=== PATIENT | female | born 1995 | race Caucasian/White ===

== ENCOUNTER 2018-03-31 17:56 | Inpatient (IN) ==
[2018-03-31] MEDS ORDERED: Cefepime HCl 2,000 MG in 0.9 % Sodium Chloride Mini Bag 100 ML IVPB ONE (18:00)
[2018-03-31] MEDS ORDERED: cefTRIAXone 1,000 MG in Water for inj. (sterile) 20 ML 10 ML IVP ONE (18:01)
[2018-03-31] MEDS ORDERED: 0.9 % Sodium Chloride 1,000 ML IVC ONE (18:01)
[2018-03-31] MEDS ORDERED: Acetaminophen 325 MG TABLET PO ONE (18:01)
[2018-03-31] MEDS ORDERED: Ketorolac 15 MG/ML VIAL IVP ONE (18:03)
[2018-03-31] MEDS ORDERED: Gadolinium Contrast Agent (WT Based) IV PRN (18:07)
[2018-03-31 18:32] LABS: Basophils # 0.1 K/mcL (0.0-0.2); Basophils % 0.3 %; Hematocrit 37.6 % (35.3-44.9); Immature Granulocytes % 0.6 % (0-4); Lymphocytes % 5.2 %; Mean Corpuscular HGB Conc 34.6 g/dL (31.6-35.5); Mean Corpuscular Hemoglobin 28.7 pg (28.0-33.3); Mean Platelet Volume 10.9 fL (9.4-12.4); Monocytes # 2.7 K/mcL (0.0-1.3); Monocytes % 14.1 %; Neutrophils # 15.3 K/mcL (1.6-8.9); Platelet Count 200 K/mcL (140-400); Red Blood Count 4.53 M/mcL (3.82-4.97); Red Cell Distribution Width 12.7 % (11.5-14.5); Segmented Neutrophils % 79.8 %
[2018-03-31 18:37] LABS: Bilirubin,Urine Negative (Negative); Blood,Urine Trace (Negative); Clarity,Urine Cloudy (Clear); Color,Urine Yellow (Yellow); Glucose,Urine (UA) Normal (Normal); Ketones,Urine Negative (Negative); Leukocyte Esterase,Urine Moderate (Negative); Nitrite,Urine Positive (Negative); PH,Urine 7.5 pH Units (5.0-8.0); Protein,Urine 100 mg/dL (Neg-Trace); Specific Gravity,Urine 1.011 (1.010-1.025); Urobilinogen,Urine Normal (Normal)
[2018-03-31 18:38] LABS: Bacteria,Urine Many per hpf (None-Few); Hyaline Casts,Urine None Seen per lpf (None-Few); RBC,Urine 0-3 per hpf (0-3); Squamous Epithelial Cell,Urine Many per lpf (None-Few); WBC,Urine 15-30 per hpf (0-3)
--- NOTE | 2018-03-31 18:58 | Emergency Department Note ---
Disposition Clinical Impression: Back pain Qualifiers: Back pain location: low back pain Chronicity: acute Back pain laterality: midline Sciatica presence: without sciatica Qualified Code(s): M54.5 - Low back pain Fever Qualifiers: Fever type: unspecified Qualified Code(s): R50.9 - Fever, unspecified Disposition: Still a Patient Condition: Fair Time of Disposition: 19:00 General Adult HPI - General Chief complaint: ED Back Pain/Injury Stated complaint: Kidney Infection Time Seen by Provider: 03/31/18 17:58 Source: patient, EMS Mode of arrival: EMS Limitations: no limitations Nursing Notes Reviewed: Yes Vital Signs Reviewed: Yes - History of Present Illness HPI Narrative: 22-year-old female with significant past medical history of IV drug use the past week presenting to the emergency Department chief complaint of fever, myalgia and back pain. Patient states approximately one month ago she is diagnosed with the UTI given 2 weeks of Keflex. She completed that and felt better. For 2 weeks she was doing well. Then a few days ago she started having fever and back pain. She denies any shortness of breath, dizziness or passing out. She denies any vaginal discharge. She denies any concerns for STDs. She denies dysuria or frequency. Patient does state she has had multiple episodes of nonbloody nonbilious emesis today. Pain Scale: 9 - Related Data Allergies Allergy/AdvReac Type Severity Reaction Status Date / Time Amoxicillin Allergy Rash Verified 03/31/18 18:26 sulfamethoxazole Allergy Anaphylaxis Verified 03/31/18 18:26 [From Bactrim] trimethoprim [From Bactrim] Allergy Anaphylaxis Verified 03/31/18 18:26 All systems ED: reviewed and negative except as stated. Constitutional: Reports: fever, chills Eyes: Reports: as per HPI ENT ED: Reports: as per HPI Cardiovascular: Denies: chest pain, palpitations Respiratory: Denies: cough, wheezes, hemoptysis Gastrointestinal: Reports: nausea, vomiting. Denies: abdominal pain Genitourinary: Denies: urgency, dysuria Musculoskeletal: Reports: back pain Integumentary: Reports: as per HPI Neurological: Reports: as per HPI Psychiatric: Reports: as per HPI Endocrine: Reports: as per HPI Hematological/Lymphatic: Reports: as per HPI Allergic/Immunologic: Reports: as per HPI Past Medical History - Past Medical History Attestation: Yes The following information was validated with the patient. Medical history: Reports: GERD, hepatitis Psychiatric history: Reports: anxiety - Social History Smoking Status: Current every day smoker Alcohol use: Reports: none Drug use: Reports: cocaine, opiates, marijuana, methamphetamine, IV Drug Use Physical Exam - General Limitations: no limitations General appearance: alert - Head Head exam: atraumatic, normocephalic, normal inspection - Eye Eye exam: Present: normal appearance. Absent: scleral icterus, conjunctival injection - ENT ENT exam: normal exam, mucous membranes moist - Neck Neck exam: Present: normal inspection, full ROM. Absent: tenderness, meningismus - Chest Chest inspection: Present: normal inspection, symmetric chest wall rise. Absent : tenderness, rash - Respiratory Respiratory exam: Present: normal lung sounds bilaterally. Absent: respiratory distress, wheezes - Cardiovascular Cardiovascular exam: Present: normal rhythm, tachycardia, normal heart sounds - Abdominal Exam Abdominal exam: Present: soft, Non-Tender. Absent: distention, guarding, rebound - Extremities Exam Extremities exam: Present: normal inspection, full ROM - Back Exam Back exam: Present: tenderness (midline thoracic and lumbar back pain) - Neurological Exam Neurological exam: Present: alert, oriented X3 - Skin Skin exam: Present: warm Course Course Narrative: 22-year-old female presenting with chief complaint of back pain and fever. Patient is known IV drug user. Concern for epidural abscess versus pyelonephritis at this time. We will obtain a MRI of the thoracic and lumbar spine along with laboratory analysis for sepsis workup associated with UTI including UA, CBC and blood cultures. Patient is alert and oriented 3 in the room. Tachycardic in the 120s and febrile but otherwise stable. Disposition pending results. Patient agrees with this plan. - Reevaluation(s) Reevaluation #1: At this time I will sign the patient out to my fellow resident Dr. White. Time: 18:59 Vital Signs Temperature 102.6 F H 03/31/18 18:08 Pulse Rate 128 03/31/18 18:08 Respiratory Rate 18 03/31/18 18:08 Blood Pressure 133/87 03/31/18 18:08 O2 Sat by Pulse Oximetry 97 03/31/18 18:08 Temperature 102.6 F H 03/31/18 18:08 Pulse Rate 128 03/31/18 18:08 Respiratory Rate 18 03/31/18 18:08 Blood Pressure 133/87 03/31/18 18:08 O2 Sat by Pulse Oximetry 97 03/31/18 18:08 Oxygen Delivery Oxygen Delivery Room Air Medical Decision Making - Lab Data Result diagrams: 03/31/18 18:18 Lab Results 03/31/18 03/31/18 03/31/18 Range/Units 18:18 18:18 18:25 WBC 19.2 H (4.3-11.1) K/mcL RBC 4.53 (3.82-4.97) M/mcL Hgb 13.0 (11.5-15.4) g/dL Hct 37.6 (35.3-44.9) % MCV 83.0 (83.0-100.0) fL MCH 28.7 (28.0-33.3) pg MCHC 34.6 (31.6-35.5) g/dL RDW 12.7 (11.5-14.5) % Plt Count 200 (140-400) K/mcL MPV 10.9 (9.4-12.4) fL Immature Gran % 0.6 (0-4) % Seg Neutrophils % 79.8 % Lymphocytes % 5.2 % Monocytes % 14.1 % Eosinophils % 0.0 % Basophils % 0.3 % Neutrophils # 15.3 H (1.6-8.9) K/mcL Lymphocytes # 1.0 (0.6-4.6) K/mcL Monocytes # 2.7 H (0.0-1.3) K/mcL Eosinophils # 0.0 (0.0-0.6) K/mcL Basophils # 0.1 (0.0-0.2) K/mcL Lactic Acid 1.2 (0.5-2.2) mmol/L Urine Color Yellow (Yellow) Urine Clarity Cloudy A (Clear) Urine pH 7.5 (5.0-8.0) pH Units Ur Specific [place] 1.011 (1.010-1.025) Urine Protein 100 H (Neg-Trace) mg/dL Urine Glucose (UA) Normal (Normal) mg/dL Urine Ketones Negative (Negative) mg/dL Urine Blood Trace H (Negative) Urine Nitrite Positive A (Negative) Urine Bilirubin Negative (Negative) Urine Urobilinogen Normal (Normal) mg/dL Ur Leukocyte Esterase Moderate H (Negative) Urine Microscopic RBC 0-3 (0-3) per hpf Urine Microscopic WBC 15-30 H (0-3) per hpf Ur Squamous Epith Cells Many H (None-Few) per lpf Urine Bacteria Many H (None-Few) per hpf Hyaline Casts None Seen (None-Few) per lpf Ur Culture Indicated? NO. A (NO)
--- NOTE | 2018-03-31 19:10 | Emergency Department Note ---
Disposition Clinical Impression: Back pain Qualifiers: Back pain location: low back pain Chronicity: acute Back pain laterality: midline Sciatica presence: without sciatica Qualified Code(s): M54.5 - Low back pain Fever Qualifiers: Fever type: unspecified Qualified Code(s): R50.9 - Fever, unspecified Disposition: Still a Patient Condition: Fair Forms: ED Satisfaction Letter Time of Disposition: 19:10 General Adult HPI - General Chief complaint: ED Back Pain/Injury Stated complaint: Kidney Infection Time Seen by Provider: 03/31/18 17:58 Source: patient, EMS Mode of arrival: EMS Limitations: no limitations - History of Present Illness Pain Scale: 9 - Related Data Allergies Allergy/AdvReac Type Severity Reaction Status Date / Time Amoxicillin Allergy Rash Verified 03/31/18 18:26 sulfamethoxazole Allergy Anaphylaxis Verified 03/31/18 18:26 [From Bactrim] trimethoprim [From Bactrim] Allergy Anaphylaxis Verified 03/31/18 18:26 Constitutional: Reports: fever, chills Eyes: Reports: as per HPI ENT ED: Reports: as per HPI Cardiovascular: Denies: chest pain, palpitations Respiratory: Denies: cough, wheezes, hemoptysis Gastrointestinal: Reports: nausea, vomiting. Denies: abdominal pain Genitourinary: Denies: urgency, dysuria Musculoskeletal: Reports: back pain Integumentary: Reports: as per HPI Neurological: Reports: as per HPI Psychiatric: Reports: as per HPI Endocrine: Reports: as per HPI Hematological/Lymphatic: Reports: as per HPI Allergic/Immunologic: Reports: as per HPI Past Medical History - Past Medical History Medical history: Reports: GERD, hepatitis Psychiatric history: Reports: anxiety - Social History Smoking Status: Current every day smoker Alcohol use: Reports: none Drug use: Reports: cocaine, opiates, marijuana, methamphetamine, IV Drug Use Physical Exam - General Limitations: no limitations General appearance: alert Course Vital Signs Temperature 102.6 F H 03/31/18 18:08 Pulse Rate 128 03/31/18 18:08 Respiratory Rate 18 03/31/18 18:08 Blood Pressure 133/87 03/31/18 18:08 O2 Sat by Pulse Oximetry 97 03/31/18 18:08 Temperature 102.6 F H 03/31/18 18:08 Pulse Rate 128 03/31/18 18:08 Respiratory Rate 18 03/31/18 18:08 Blood Pressure 133/87 03/31/18 18:08 O2 Sat by Pulse Oximetry 97 03/31/18 18:08 Oxygen Delivery Oxygen Delivery Room Air Medical Decision Making - Lab Data Result diagrams: 03/31/18 18:18 Lab Results 03/31/18 03/31/18 03/31/18 Range/Units 18:18 18:18 18:25 WBC 19.2 H (4.3-11.1) K/mcL RBC 4.53 (3.82-4.97) M/mcL Hgb 13.0 (11.5-15.4) g/dL Hct 37.6 (35.3-44.9) % MCV 83.0 (83.0-100.0) fL MCH 28.7 (28.0-33.3) pg MCHC 34.6 (31.6-35.5) g/dL RDW 12.7 (11.5-14.5) % Plt Count 200 (140-400) K/mcL MPV 10.9 (9.4-12.4) fL Immature Gran % 0.6 (0-4) % Seg Neutrophils % 79.8 % Lymphocytes % 5.2 % Monocytes % 14.1 % Eosinophils % 0.0 % Basophils % 0.3 % Neutrophils # 15.3 H (1.6-8.9) K/mcL Lymphocytes # 1.0 (0.6-4.6) K/mcL Monocytes # 2.7 H (0.0-1.3) K/mcL Eosinophils # 0.0 (0.0-0.6) K/mcL Basophils # 0.1 (0.0-0.2) K/mcL Lactic Acid 1.2 (0.5-2.2) mmol/L Urine Color Yellow (Yellow) Urine Clarity Cloudy A (Clear) Urine pH 7.5 (5.0-8.0) pH Units Ur Specific [place] 1.011 (1.010-1.025) Urine Protein 100 H (Neg-Trace) mg/dL Urine Glucose (UA) Normal (Normal) mg/dL Urine Ketones Negative (Negative) mg/dL Urine Blood Trace H (Negative) Urine Nitrite Positive A (Negative) Urine Bilirubin Negative (Negative) Urine Urobilinogen Normal (Normal) mg/dL Ur Leukocyte Esterase Moderate H (Negative) Urine Microscopic RBC 0-3 (0-3) per hpf Urine Microscopic WBC 15-30 H (0-3) per hpf Ur Squamous Epith Cells Many H (None-Few) per lpf Urine Bacteria Many H (None-Few) per hpf Hyaline Casts None Seen (None-Few) per lpf Ur Culture Indicated? NO. A (NO) Attestation Statement - Attestation Attestation: I separately interviewed and examined the patient, discussed her evaluation with resident, and agree with the resident's plan. Patient was signed out to Dr. English at 7 PM.
[2018-03-31] MEDS ORDERED: Isovue-370 500 ML INFUS..BTL IV ONE (19:12)
[2018-03-31 19:20] LABS: Alanine Aminotransferase 11 Units/L (7-52); Albumin 3.8 g/dL (3.5-5.7); Albumin/Globulin Ratio 1.2 (1.1-2.2); Alkaline Phosphatase 70 Units/L (34-104); Aspartate Amino Transferase 13 Units/L (13-39); BUN/Creatinine Ratio 6 (6-26); Bilirubin,Direct 0.1 mg/dL (0.0-0.2); Bilirubin,Indirect 0.2 mg/dL (0.0-1.2); Bilirubin,Total 0.3 mg/dL (0.3-1.0); Blood Urea Nitrogen 4 mg/dL (6-20); Calcium 8.9 mg/dL (8.6-10.3); Carbon Dioxide 19 mEq/L (23-29); Chloride 101 mEq/L (98-107); Globulin 3.2 g/dL (2.4-3.5); Glucose 122 mg/dL (70-105); Osmolality,Calculated 268 (280-300); Potassium 2.8 mEq/L (3.5-5.1); Sodium 130 mEq/L (136-145); eGFR For Non-African Americans > 60 (> 60)
--- NOTE | 2018-03-31 21:48 | Emergency Department Note ---
Disposition Clinical Impression: Pyelonephritis Fever Qualifiers: Fever type: unspecified Qualified Code(s): R50.9 - Fever, unspecified Back pain Qualifiers: Back pain location: low back pain Chronicity: acute Back pain laterality: midline Sciatica presence: without sciatica Qualified Code(s): M54.5 - Low back pain Sepsis Qualifiers: Sepsis type: sepsis due to unspecified organism Qualified Code(s): A41.9 - Sepsis, unspecified organism Disposition: Admitted As Inpatient Condition: Good Referrals: Asad Walker DO [Primary Care Provider] - Forms: ED Satisfaction Letter Time of Disposition: 22:39 General Adult HPI - General Chief complaint: ED Back Pain/Injury Stated complaint: Kidney Infection Time Seen by Provider: 03/31/18 17:58 Source: patient, EMS Mode of arrival: EMS Limitations: no limitations - History of Present Illness Pain Scale: 9 - Related Data Home Medications Medication Instructions Recorded Confirmed Acetaminophen [Arthritis Pain 650 mg PO BID 03/31/18 03/31/18 Relief] Buspirone HCl [Buspar] 10 mg PO BID 03/31/18 03/31/18 Citalopram [CeleXA] 20 mg PO DAILY 03/31/18 03/31/18 Mavyret 3 tab PO DAILY 03/31/18 03/31/18 Pantoprazole Sodium [Protonix] 40 mg PO BID 03/31/18 03/31/18 Allergies Allergy/AdvReac Type Severity Reaction Status Date / Time Amoxicillin Allergy Rash Verified 03/31/18 21:52 sulfamethoxazole Allergy Anaphylaxis Verified 03/31/18 21:52 [From Bactrim] trimethoprim [From Bactrim] Allergy Anaphylaxis Verified 03/31/18 21:52 Constitutional: Reports: fever, chills Eyes: Reports: as per HPI ENT ED: Reports: as per HPI Cardiovascular: Denies: chest pain, palpitations Respiratory: Denies: cough, wheezes, hemoptysis Gastrointestinal: Reports: nausea, vomiting. Denies: abdominal pain Genitourinary: Denies: urgency, dysuria Musculoskeletal: Reports: back pain Integumentary: Reports: as per HPI Neurological: Reports: as per HPI Psychiatric: Reports: as per HPI Endocrine: Reports: as per HPI Hematological/Lymphatic: Reports: as per HPI Allergic/Immunologic: Reports: as per HPI Past Medical History - Past Medical History Medical history: Reports: GERD, hepatitis Psychiatric history: Reports: anxiety - Social History Smoking Status: Current every day smoker Alcohol use: Reports: none Drug use: Reports: cocaine, opiates, marijuana, methamphetamine, IV Drug Use Physical Exam - General Limitations: no limitations General appearance: alert Course Course Narrative: Patient sign off day shift team pending imaging and lab results. Please see their documentation for details. In brief 22-year-old female history of IV drug use most recently used in January who presented with fever and tachycardia with right flank pain. Recent UTI 1 month ago treated with Keflex for 14 day course. I to dismissal to the patient. Discussed imaging, labs and current recommendations. Imaging negative for spinal issue. CT damage as well as pyelonephritis in the setting of UTI as well as leukocytosis. Lactate normal. Vitals have improved with intervention. Patient agrees with admission for further management. Vital Signs Temperature 102.6 F H 03/31/18 18:08 Pulse Rate 128 03/31/18 18:08 Respiratory Rate 18 03/31/18 18:08 Blood Pressure 133/87 03/31/18 18:08 O2 Sat by Pulse Oximetry 97 03/31/18 18:08 Temperature 98.3 F 03/31/18 21:13 Pulse Rate 93 03/31/18 21:13 Respiratory Rate 16 03/31/18 21:13 Blood Pressure 115/76 03/31/18 21:13 O2 Sat by Pulse Oximetry 97 03/31/18 21:13 Oxygen Delivery Oxygen Delivery Room Air Medical Decision Making - MDM Narrative Medical decision making narrative: 22-year-old female with pyelonephritis. History of IV drug use. Tachycardic and febrile here. Improved during ED stay. Patient is septic secondary to pyelonephritis with tachycardia, fever and leukocytosis. Patient given cefepime. MRI negative of the spine. CT scan shows pyelonephritis. Admitted to the hospitalist service. - Lab Data Lab results reviewed: Yes I reviewed the patient's lab results. Result diagrams: 03/31/18 18:18 03/31/18 18:18 Lab Results 03/31/18 03/31/18 03/31/18 Range/Units 18:18 18:18 18:18 WBC 19.2 H (4.3-11.1) K/mcL RBC 4.53 (3.82-4.97) M/mcL Hgb 13.0 (11.5-15.4) g/dL Hct 37.6 (35.3-44.9) % MCV 83.0 (83.0-100.0) fL MCH 28.7 (28.0-33.3) pg MCHC 34.6 (31.6-35.5) g/dL RDW 12.7 (11.5-14.5) % Plt Count 200 (140-400) K/mcL MPV 10.9 (9.4-12.4) fL Immature Gran % 0.6 (0-4) % Seg Neutrophils % 79.8 % Lymphocytes % 5.2 % Monocytes % 14.1 % Eosinophils % 0.0 % Basophils % 0.3 % Neutrophils # 15.3 H (1.6-8.9) K/mcL Lymphocytes # 1.0 (0.6-4.6) K/mcL Monocytes # 2.7 H (0.0-1.3) K/mcL Eosinophils # 0.0 (0.0-0.6) K/mcL Basophils # 0.1 (0.0-0.2) K/mcL Sodium 130 L (136-145) mEq/L Potassium 2.8 L (3.5-5.1) mEq/L Chloride 101 (98-107) mEq/L Carbon Dioxide 19 L (23-29) mEq/L BUN 4 L (6-20) mg/dL Creatinine 0.63 (0.60-1.20) mg/dL Est GFR ( Amer) > 60 (> 60) Est GFR (Non-Af Amer) > 60 (> 60) BUN/Creatinine Ratio 6 (6-26) Glucose 122 H (70-105) mg/dL Calculated Osmolality 268 L (280-300) Lactic Acid 1.2 (0.5-2.2) mmol/L Calcium 8.9 (8.6-10.3) mg/dL Total Bilirubin 0.3 (0.3-1.0) mg/dL Direct Bilirubin 0.1 (0.0-0.2) mg/dL Indirect Bilirubin 0.2 (0.0-1.2) mg/dL AST 13 (13-39) Units/L ALT 11 (7-52) Units/L Alkaline Phosphatase 70 (34-104) Units/L Serum Total Protein 7.0 (6.4-8.9) g/dL Albumin 3.8 (3.5-5.7) g/dL Globulin 3.2 (2.4-3.5) g/dL Albumin/Globulin Ratio 1.2 (1.1-2.2) Urine Color (Yellow) Urine Clarity (Clear) Urine pH (5.0-8.0) pH Units Ur Specific [place] (1.010-1.025) Urine Protein (Neg-Trace) mg/dL Urine Glucose (UA) (Normal) mg/dL Urine Ketones (Negative) mg/dL Urine Blood (Negative) Urine Nitrite (Negative) Urine Bilirubin (Negative) Urine Urobilinogen (Normal) mg/dL Ur Leukocyte Esterase (Negative) Urine Microscopic RBC (0-3) per hpf Urine Microscopic WBC (0-3) per hpf Ur Squamous Epith Cells (None-Few) per lpf Urine Bacteria (None-Few) per hpf Hyaline Casts (None-Few) per lpf Ur Culture Indicated? (NO) 03/31/18 Range/Units 18:25 WBC (4.3-11.1) K/mcL RBC (3.82-4.97) M/mcL Hgb (11.5-15.4) g/dL Hct (35.3-44.9) % MCV (83.0-100.0) fL MCH (28.0-33.3) pg MCHC (31.6-35.5) g/dL RDW (11.5-14.5) % Plt Count (140-400) K/mcL MPV (9.4-12.4) fL Immature Gran % (0-4) % Seg Neutrophils % % Lymphocytes % % Monocytes % % Eosinophils % % Basophils % % Neutrophils # (1.6-8.9) K/mcL Lymphocytes # (0.6-4.6) K/mcL Monocytes # (0.0-1.3) K/mcL Eosinophils # (0.0-0.6) K/mcL Basophils # (0.0-0.2) K/mcL Sodium (136-145) mEq/L Potassium (3.5-5.1) mEq/L Chloride (98-107) mEq/L Carbon Dioxide (23-29) mEq/L BUN (6-20) mg/dL Creatinine (0.60-1.20) mg/dL Est GFR ( Amer) (> 60) Est GFR (Non-Af Amer) (> 60) BUN/Creatinine Ratio (6-26) Glucose (70-105) mg/dL Calculated Osmolality (280-300) Lactic Acid (0.5-2.2) mmol/L Calcium (8.6-10.3) mg/dL Total Bilirubin (0.3-1.0) mg/dL Direct Bilirubin (0.0-0.2) mg/dL Indirect Bilirubin (0.0-1.2) mg/dL AST (13-39) Units/L ALT (7-52) Units/L Alkaline Phosphatase (34-104) Units/L Serum Total Protein (6.4-8.9) g/dL Albumin (3.5-5.7) g/dL Globulin (2.4-3.5) g/dL Albumin/Globulin Ratio (1.1-2.2) Urine Color Yellow (Yellow) Urine Clarity Cloudy A (Clear) Urine pH 7.5 (5.0-8.0) pH Units Ur Specific [place] 1.011 (1.010-1.025) Urine Protein 100 H (Neg-Trace) mg/dL Urine Glucose (UA) Normal (Normal) mg/dL Urine Ketones Negative (Negative) mg/dL Urine Blood Trace H (Negative) Urine Nitrite Positive A (Negative) Urine Bilirubin Negative (Negative) Urine Urobilinogen Normal (Normal) mg/dL Ur Leukocyte Esterase Moderate H (Negative) Urine Microscopic RBC 0-3 (0-3) per hpf Urine Microscopic WBC 15-30 H (0-3) per hpf Ur Squamous Epith Cells Many H (None-Few) per lpf Urine Bacteria Many H (None-Few) per hpf Hyaline Casts None Seen (None-Few) per lpf Ur Culture Indicated? NO. A (NO) - Radiology Data Radiology results reviewed: Yes I reviewed the patient's radiology results. Lumbar Spine MRI 03/31/18 18:07 IMPRESSION: No MRI evidence of osteodiscitis or epidural abscess in the thoracic or lumbar spine. D/ / Miles Gonzalez MD / Miles Gonzalez MD Interpreting Provider: Miles Gonzalez MD Thoracic Spine MRI 03/31/18 18:07 IMPRESSION: No MRI evidence of osteodiscitis or epidural abscess in the thoracic or lumbar spine. D/ / Miles Gonzalez MD / Miles Gonzalez MD Interpreting Provider: Miles Gonzalez MD Abdomen/Pelvis CT 03/31/18 19:12 IMPRESSION: 1. Findings consistent with acute right pyelonephritis. Follow-up after treatment to confirm resolution of findings in the right kidney. D/ / Ramiro Benítez MD / Ramiro Benítez MD Interpreting Provider: Ramiro Benítez MD Fausto - Fausto Situation: Demographics, MOA Background: Presenting Complaint, Relevant PMH, Meds, & Allergies Assessment: Vital Signs, Course and respsone to treatment, Exam Concerns, Patient/Family Expectation, Pertinant Lab Results Recommendation: Barrier(s) to disposition, Recommendation based on pending studies, treatments, or consults Fausto Report Given to: Dr. Benita Lambert Repor Time: 22:39
[2018-03-31] MEDS ORDERED: Naloxone 0.4 MG/ML INJ IVP PRN (22:54)
[2018-03-31] MEDS ORDERED: Acetaminophen 325 MG TABLET PO PRN (22:54)
[2018-03-31] MEDS ORDERED: traMADol 50 MG TABLET PO PRN (22:54)
--- NOTE | 2018-03-31 23:10 | Emergency Department Note ---
Disposition Clinical Impression: Pyelonephritis Fever Qualifiers: Fever type: unspecified Qualified Code(s): R50.9 - Fever, unspecified Back pain Qualifiers: Back pain location: low back pain Chronicity: acute Back pain laterality: midline Sciatica presence: without sciatica Qualified Code(s): M54.5 - Low back pain Sepsis Qualifiers: Sepsis type: sepsis due to unspecified organism Qualified Code(s): A41.9 - Sepsis, unspecified organism Disposition: Admitted As Inpatient Condition: Good Time of Disposition: 22:39 General Adult HPI - General Chief complaint: ED Back Pain/Injury Stated complaint: Kidney Infection Time Seen by Provider: 03/31/18 17:58 Source: patient, EMS Mode of arrival: EMS Limitations: no limitations Nursing Notes Reviewed: Yes Vital Signs Reviewed: Yes - History of Present Illness Pain Scale: 4 - Related Data Home Medications Medication Instructions Recorded Confirmed Acetaminophen [Arthritis Pain 650 mg PO BID 03/31/18 03/31/18 Relief] Buspirone HCl [Buspar] 10 mg PO BID 03/31/18 03/31/18 Citalopram [CeleXA] 20 mg PO DAILY 03/31/18 03/31/18 Mavyret 3 tab PO DAILY 03/31/18 03/31/18 Pantoprazole Sodium [Protonix] 40 mg PO BID 03/31/18 03/31/18 Allergies Allergy/AdvReac Type Severity Reaction Status Date / Time Amoxicillin Allergy Rash Verified 03/31/18 21:52 sulfamethoxazole Allergy Anaphylaxis Verified 03/31/18 21:52 [From Bactrim] trimethoprim [From Bactrim] Allergy Anaphylaxis Verified 03/31/18 21:52 Constitutional: Reports: fever, chills Eyes: Reports: as per HPI ENT ED: Reports: as per HPI Cardiovascular: Denies: chest pain, palpitations Respiratory: Denies: cough, wheezes, hemoptysis Gastrointestinal: Reports: nausea, vomiting. Denies: abdominal pain Genitourinary: Denies: urgency, dysuria Musculoskeletal: Reports: back pain Integumentary: Reports: as per HPI Neurological: Reports: as per HPI Psychiatric: Reports: as per HPI Endocrine: Reports: as per HPI Hematological/Lymphatic: Reports: as per HPI Allergic/Immunologic: Reports: as per HPI Past Medical History - Past Medical History Medical history: Reports: GERD, hepatitis Psychiatric history: Reports: anxiety - Social History Smoking Status: Current every day smoker Alcohol use: Reports: none Drug use: Reports: cocaine, opiates, marijuana, methamphetamine, IV Drug Use Physical Exam - General Limitations: no limitations General appearance: alert Course Vital Signs Temperature 102.6 F H 03/31/18 18:08 Pulse Rate 128 03/31/18 18:08 Respiratory Rate 18 03/31/18 18:08 Blood Pressure 133/87 03/31/18 18:08 O2 Sat by Pulse Oximetry 97 03/31/18 18:08 Temperature 98.3 F 03/31/18 21:13 Pulse Rate 93 03/31/18 21:13 Respiratory Rate 16 03/31/18 22:51 Blood Pressure 109/87 03/31/18 22:51 O2 Sat by Pulse Oximetry 97 03/31/18 21:13 Oxygen Delivery Oxygen Delivery Room Air Medical Decision Making - Medical Records Medical records reviewed: Yes I reviewed the patient's medical records. - Lab Data Lab results reviewed: Yes I reviewed the patient's lab results. Result diagrams: 03/31/18 18:18 03/31/18 18:18 Lab Results 03/31/18 03/31/18 03/31/18 Range/Units 18:18 18:18 18:18 WBC 19.2 H (4.3-11.1) K/mcL RBC 4.53 (3.82-4.97) M/mcL Hgb 13.0 (11.5-15.4) g/dL Hct 37.6 (35.3-44.9) % MCV 83.0 (83.0-100.0) fL MCH 28.7 (28.0-33.3) pg MCHC 34.6 (31.6-35.5) g/dL RDW 12.7 (11.5-14.5) % Plt Count 200 (140-400) K/mcL MPV 10.9 (9.4-12.4) fL Immature Gran % 0.6 (0-4) % Seg Neutrophils % 79.8 % Lymphocytes % 5.2 % Monocytes % 14.1 % Eosinophils % 0.0 % Basophils % 0.3 % Neutrophils # 15.3 H (1.6-8.9) K/mcL Lymphocytes # 1.0 (0.6-4.6) K/mcL Monocytes # 2.7 H (0.0-1.3) K/mcL Eosinophils # 0.0 (0.0-0.6) K/mcL Basophils # 0.1 (0.0-0.2) K/mcL Sodium 130 L (136-145) mEq/L Potassium 2.8 L (3.5-5.1) mEq/L Chloride 101 (98-107) mEq/L Carbon Dioxide 19 L (23-29) mEq/L BUN 4 L (6-20) mg/dL Creatinine 0.63 (0.60-1.20) mg/dL Est GFR ( Amer) > 60 (> 60) Est GFR (Non-Af Amer) > 60 (> 60) BUN/Creatinine Ratio 6 (6-26) Glucose 122 H (70-105) mg/dL Calculated Osmolality 268 L (280-300) Lactic Acid 1.2 (0.5-2.2) mmol/L Calcium 8.9 (8.6-10.3) mg/dL Total Bilirubin 0.3 (0.3-1.0) mg/dL Direct Bilirubin 0.1 (0.0-0.2) mg/dL Indirect Bilirubin 0.2 (0.0-1.2) mg/dL AST 13 (13-39) Units/L ALT 11 (7-52) Units/L Alkaline Phosphatase 70 (34-104) Units/L Serum Total Protein 7.0 (6.4-8.9) g/dL Albumin 3.8 (3.5-5.7) g/dL Globulin 3.2 (2.4-3.5) g/dL Albumin/Globulin Ratio 1.2 (1.1-2.2) Urine Color (Yellow) Urine Clarity (Clear) Urine pH (5.0-8.0) pH Units Ur Specific [place] (1.010-1.025) Urine Protein (Neg-Trace) mg/dL Urine Glucose (UA) (Normal) mg/dL Urine Ketones (Negative) mg/dL Urine Blood (Negative) Urine Nitrite (Negative) Urine Bilirubin (Negative) Urine Urobilinogen (Normal) mg/dL Ur Leukocyte Esterase (Negative) Urine Microscopic RBC (0-3) per hpf Urine Microscopic WBC (0-3) per hpf Ur Squamous Epith Cells (None-Few) per lpf Urine Bacteria (None-Few) per hpf Hyaline Casts (None-Few) per lpf Ur Culture Indicated? (NO) 03/31/18 Range/Units 18:25 WBC (4.3-11.1) K/mcL RBC (3.82-4.97) M/mcL Hgb (11.5-15.4) g/dL Hct (35.3-44.9) % MCV (83.0-100.0) fL MCH (28.0-33.3) pg MCHC (31.6-35.5) g/dL RDW (11.5-14.5) % Plt Count (140-400) K/mcL MPV (9.4-12.4) fL Immature Gran % (0-4) % Seg Neutrophils % % Lymphocytes % % Monocytes % % Eosinophils % % Basophils % % Neutrophils # (1.6-8.9) K/mcL Lymphocytes # (0.6-4.6) K/mcL Monocytes # (0.0-1.3) K/mcL Eosinophils # (0.0-0.6) K/mcL Basophils # (0.0-0.2) K/mcL Sodium (136-145) mEq/L Potassium (3.5-5.1) mEq/L Chloride (98-107) mEq/L Carbon Dioxide (23-29) mEq/L BUN (6-20) mg/dL Creatinine (0.60-1.20) mg/dL Est GFR ( Amer) (> 60) Est GFR (Non-Af Amer) (> 60) BUN/Creatinine Ratio (6-26) Glucose (70-105) mg/dL Calculated Osmolality (280-300) Lactic Acid (0.5-2.2) mmol/L Calcium (8.6-10.3) mg/dL Total Bilirubin (0.3-1.0) mg/dL Direct Bilirubin (0.0-0.2) mg/dL Indirect Bilirubin (0.0-1.2) mg/dL AST (13-39) Units/L ALT (7-52) Units/L Alkaline Phosphatase (34-104) Units/L Serum Total Protein (6.4-8.9) g/dL Albumin (3.5-5.7) g/dL Globulin (2.4-3.5) g/dL Albumin/Globulin Ratio (1.1-2.2) Urine Color Yellow (Yellow) Urine Clarity Cloudy A (Clear) Urine pH 7.5 (5.0-8.0) pH Units Ur Specific [place] 1.011 (1.010-1.025) Urine Protein 100 H (Neg-Trace) mg/dL Urine Glucose (UA) Normal (Normal) mg/dL Urine Ketones Negative (Negative) mg/dL Urine Blood Trace H (Negative) Urine Nitrite Positive A (Negative) Urine Bilirubin Negative (Negative) Urine Urobilinogen Normal (Normal) mg/dL Ur Leukocyte Esterase Moderate H (Negative) Urine Microscopic RBC 0-3 (0-3) per hpf Urine Microscopic WBC 15-30 H (0-3) per hpf Ur Squamous Epith Cells Many H (None-Few) per lpf Urine Bacteria Many H (None-Few) per hpf Hyaline Casts None Seen (None-Few) per lpf Ur Culture Indicated? NO. A (NO) - Radiology Data Radiology results reviewed: Yes I reviewed the patient's radiology results. Lumbar Spine MRI 03/31/18 18:07 IMPRESSION: No MRI evidence of osteodiscitis or epidural abscess in the thoracic or lumbar spine. D/ / Miles Gonzalez MD / Miles Gonzalez MD Interpreting Provider: Miles Gonzalez MD Thoracic Spine MRI 03/31/18 18:07 IMPRESSION: No MRI evidence of osteodiscitis or epidural abscess in the thoracic or lumbar spine. D/ / Miles Gonzalez MD / Miles Gonzalez MD Interpreting Provider: Miles Gonzalez MD Abdomen/Pelvis CT 03/31/18 19:12 IMPRESSION: 1. Findings consistent with acute right pyelonephritis. Follow-up after treatment to confirm resolution of findings in the right kidney. D/ / Ramiro Benítez MD / Ramiro Benítez MD Interpreting Provider: Ramiro Benítez MD Critical Care Time Critical Care Time: Yes Total Critical Care Time: 35 Attestation: Critical care performed: Time is exclusive of separately billable procedures. Time includes: direct patient care, patient reassessment, coordination of patient care, interpretation of data (laboratory data, radiology data, and respiratory data), review of patient's medical records, medical consultation and documentation of patient care. Procedures included in critical care time: Procedures excluded from critical care time: Attestation Statement - Attestation Attestation: I, Emiliano Teran MD, personally evaluated this patient and discussed their management with the resident physician. I reviewed the resident's note and agree with the documented findings, medical decision making, and plan of care. This patient was signed out at shift change from Dr. Vanessa Curry and Dr. Evans. Patient presented with fever and chills and nausea and vomiting and right flank pain. He also complained of some back pain. At shift change patient is awaiting labs and CT and MRI of the spine. On examination patient is a well-developed well-nourished well-appearing female in no acute distress. She is alert and oriented 3. There is no cyanosis or diaphoresis. Breath sounds are clear and equal bilaterally. Heart regular rate and rhythm. Abdomen soft and nontender with normal bowel sounds. Mild right CVA tenderness. Labs and imaging reviewed. Findings consistent with pyelonephritis. The hospitalist, Dr. Marc, was consulted and accepted admission of the patient.
--- NOTE | 2018-04-01 00:05 | Internal Med History&Physical ---
Date of Encounter: 04/01/18 Time of Encounter: 23:50 Internal Medicine - H&P: HPI Chief complaint: Back pain, right flank pain, fevers and chills History of present illness: Ms. Hightower is a 22 year old female with history of recurrent UTIs, hep C, IV drug abuseand past hopsitalization for pyelonephritis presenting with comlaints of flank pain since thursday night. Patient note she goes to her PCP every month for UTIs. On thursday night she began to have right sided flank pain, along with back pain. Symptoms were accompanied with nausea, fevers and chills. She also had vomiting yesterday morning. Also admits to dizzines and chills. In the ER, CT abdomen showed evidence of right sided pyelonephritis. She was given one dose ceftriaxone Past Med Surg Social Fam HX - Past Medical History Medical history: GERD, hepatitis Additional medical history: Previous IV drug use Psychiatric history: anxiety - Past Surgical History Surgical History: breast surgery Additional surgical history: [place] teeth. Lump removed from left breast. Tonsillectomy - Social History Smoking Status: Former smoker Smokeless Tobacco Status: No Alcohol use: none Drug use: cocaine, opiates, marijuana, methamphetamine, IV Drug Use, prescription drug abuse Internal Medicine - H&P: Meds Acetaminophen [Arthritis Pain Relief] 650 mg PO BID 03/31/18 [History] Buspirone HCl [Buspar] 10 mg PO BID 03/31/18 [History] Citalopram [CeleXA] 20 mg PO DAILY 03/31/18 [History] Mavyret 3 tab PO DAILY 03/31/18 [History] Pantoprazole Sodium [Protonix] 40 mg PO BID 03/31/18 [History] 3 Allergy/AdvReac Type Severity Reaction Status Date / Time Amoxicillin Allergy Rash Verified 03/31/18 21:52 sulfamethoxazole Allergy Anaphylaxis Verified 03/31/18 21:52 [From Bactrim] trimethoprim [From Bactrim] Allergy Anaphylaxis Verified 03/31/18 21:52 All Systems PM: A 10-system review of systems was performed and is negative for pertinent findings except as documented above in the HPI. - Constitutional Constitutional: chills, fever(s), malaise - EENT Eyes: no change in vision, no discharge, no pain, no photophobia Ears: no ear discharge, no ear pain, no tinnitus Nose, mouth and throat: no dysphagia, no nasal discharge, no neck pain, no sore throat - Cardiovascular Cardiovascular ROS IM: no chest pain, no diaphoresis, no dyspnea, no lightheadedness, no palpitations, no syncope - Respiratory Respiratory: no cough, no dyspnea, no wheezing, no excessive phlegm production - Gastrointestinal Gastrointestinal: abdominal pain, no diarrhea, no hematemesis, no hematochezia, no melena, no nausea, no vomiting - Genitourinary Genitourinary: flank pain, no change in urinary stream, no dysuria, no hematuria - Musculoskeletal Musculoskeletal ROS IM: no numbness, no tingling - Integumentary Integumentary IM: no rash, no unusual bruising - Neurological Neurological ROS: no confusion, no convulsions, no focal weakness, no numbness, no tingling, no tremor(s) - Hematologic/Lymphatic Hematologic/Lymphatic: no easy bruising - Constitutional Vitals: Temp Pulse Resp BP Pulse Ox 99.3 F 99 16 122/76 99 03/31/18 23:12 03/31/18 23:12 03/31/18 23:12 03/31/18 23:12 03/31/18 23:12 - Head Head exam: Present: atraumatic, normocephalic - Eye Eye exam: Present: PERRL, conjuntiva pink, sclera anicteric Pupils: Present: PERRL - Neck Neck exam general surgery: Present: supple, trachea midline. Absent: lymphadenopathy - Respiratory Respiratory exam: Present: CTAB. Absent: accessory muscle use, rales, rhonchi, wheezes - Cardiovascular Cardiovascular exam: Present: RRR, +S1, +S2. Absent: diastolic murmur, gallop, rubs, systolic murmur - GI/Abdominal GI/Abdominal exam: Present: normal bowel sounds, soft, no peritoneal signs. Absent: distended, tenderness - Extremities Exam Extremities exam: Present: warm, radial pulses palpable and symmetrical. Absent : calf tenderness, cyanotic, pedal edema - Back Exam Back exam: Present: CVA tenderness (R) - Neurological Exam Neurological exam: Present: CN II-XII intact, oriented X3, no focal deficits. Absent: pronater drift, facial droop, speech deficit - Skin Skin exam: Present: dry, intact Internal Med - H&P Results - Labs CBC & Chem 7: 03/31/18 18:18 08 18:18 - Assessment and plan (1) Sepsis Current Visit: Yes Status: Acute Assessment and plan: Sepsis 2/2 to pyelopnephritis. Pt had fever of 102 with WBC of 19. Blood cultures and urine cultures ordered. Started on levaquin. Follow up cultures Qualifiers: Sepsis type: sepsis due to unspecified organism Qualified Code(s): A41.9 - Sepsis, unspecified organism (2) Pyelonephritis Current Visit: Yes Status: Acute Assessment and plan: Acute pyelonephritis. Continue antibiotics (3) Hepatitis C Current Visit: Yes Status: Acute Assessment and plan: pT has been non compliant with her antivirals because she says she was in shelter and can't take her meds in shelter. Follow up with PCP. Plan to ocmplete 8 week course uninterrupted, ideally Qualifiers: Qualified Code(s): B19.20 - Unspecified viral hepatitis C without hepatic coma (4) DVT prophylaxis Current Visit: Yes Status: Acute Assessment and plan: SCDs - Time Spent With Patient Total time spent is greater than 50% in coordination of care (as documented) at patient's floor/unit and/or counseling patient:
[2018-04-01] MEDS: 0.9 % Sodium Chloride 1,000 ML IVC SCH ×2 (00:50→10:15)
[2018-04-01 03:07] LABS: Basophils % 0.2 %; Hematocrit 34.5 % (35.3-44.9); Hemoglobin 11.8 g/dL (11.5-15.4); Immature Granulocytes % 0.6 % (0-4); Lymphocytes # 1.1 K/mcL (0.6-4.6); Lymphocytes % 5.7 %; Mean Corpuscular HGB Conc 34.2 g/dL (31.6-35.5); Mean Corpuscular Hemoglobin 28.2 pg (28.0-33.3); Mean Corpuscular Volume 82.5 fL (83.0-100.0); Mean Platelet Volume 11.2 fL (9.4-12.4); Monocytes # 3.8 K/mcL (0.0-1.3); Monocytes % 20.1 %; Neutrophils # 13.9 K/mcL (1.6-8.9); Platelet Count 202 K/mcL (140-400); Red Blood Count 4.18 M/mcL (3.82-4.97); Red Cell Distribution Width 12.8 % (11.5-14.5); Segmented Neutrophils % 73.4 %
[2018-04-01 03:30] LABS: BUN/Creatinine Ratio 6 (6-26); Blood Urea Nitrogen 4 mg/dL (6-20); Calcium 8.8 mg/dL (8.6-10.3); Carbon Dioxide 19 mEq/L (23-29); Chloride 112 mEq/L (98-107); Glucose 126 mg/dL (70-105); Osmolality,Calculated 272 (280-300); Phosphorous 1.3 mg/dL (2.7-4.5); Sodium 132 mEq/L (136-145); eGFR For Non-African Americans > 60 (> 60)
[2018-04-01 03:36] LABS: Platelet Estimate Normal (Normal)
[2018-04-01] MEDS ORDERED: Cefepime HCl 2,000 MG in Water for inj. (sterile) 20 ML 20 ML IVP SCH (08:00)
[2018-04-01] MEDS ORDERED: MAVYRET PO SCH (09:00)
[2018-04-01] MEDS ORDERED: Levofloxacin 750 MG/150 ML 750 MG/150 ML BAG IVPB SCH (09:00)
--- NOTE | 2018-04-01 09:43 | Internal Med Progress Note ---
Hospitalist Progress Note - Encounter Date of Encounter: 04/01/18 Time of Encounter: 09:37 - Subjective Interval History: 22 year old female with history of recurrent UTIs, hep C, IV drug abuseand past hopsitalization for pyelonephritis presenting with comlaints of flank pain since 5 days before admission. As per patient she was recently treated for a UTI with Keflex for 14 days 2 months ago but her symptoms returned. Currently she denies any fever, chills, nausea, vomiting, diarrhea. She still has mild dysuria, as right-sided flank pain, that is crampy in nature and has made her difficult to sleep on her right side. She has received IV antibiotics without any adverse reactions. She reports that she is hungry and feels as though she is ready to eat since her nausea has resolved. - Exam Vitals: Temp Pulse Resp BP Pulse Ox 99.9 F H 106 18 119/78 98 04/01/18 07:44 04/01/18 07:44 04/01/18 07:44 04/01/18 07:44 04/01/18 07:44 Exam: General: Patient is alert, oriented, no acute distress, Head: atraumatic, normocephalic, Eye: normal appearance, PERRL, no scleral icterus, no conjunctival injection ENT: mucous membranes moist, normal external ear exam Neck: normal inspection, trachea midline, full ROM, no carotid bruits Chest: normal inspection, symmetric chest rise Respiratory: Good respiratory effort. Bilateral breath sounds are clear without wheezing, crackles, or rhonchi. Cardiovascular: Regular rate and rhythm. s1 and s2 No clicks, rubs, gallops, or murmors. Abdomen: Bowel sounds present normoactive x-4 quadrants. Abdomen is soft, nondistended. no Epigastric tenderness. No guarding or rebound. No organomegaly noted, right sided CVA tenderness musculoskeletal: Spontaneously moving all extremities. no edema, no calf tenderness Skin: warm, dry, intact. Neuro: Alert and oriented x4. Sensation light touch intact. Cranial nerves 2- 12 is intact. Not aphasic, gait is steady, rapid hand movements intact, finger- to-nose intact, Psych: Patient's affect is normal - Assessment and Plan (1) Pyelonephritis Current Visit: Yes Status: Acute Assessment and Plan: CT abdomen and pelvis was positive for right-sided pyelonephritis on March 31 Patient received ceftriaxone in the ED We will continue IV fluids Was started on IV Levaquin stop IV Levaquin- started her on vancomycin and cefepime (did not show any reactions to ceftriaxone received in the ED) Will follow blood cultures and urine cultures and de-escalate antibiotics Has history of IV drug abuse (2) Sepsis Current Visit: Yes Status: Acute Assessment and Plan: Sepsis 2/2 to pyelopnephritis. Pt had fever of 102 with WBC of 19. On admission White count is trending down Lactic acid negative 2 Currently afebrile Vitals are stable Well continue management as per above (3) Hepatitis C Current Visit: Yes Status: Acute Assessment and Plan: pT has been non compliant with her antivirals because she says [facility] and can't take her meds [facility]. Follow up with PCP. Plan to complete 8 week course uninterrupted, ideally (4) Hypophosphatemia Current Visit: Yes Status: Acute Assessment and Plan: We will replace (5) Hypokalemia Current Visit: Yes Status: Acute Assessment and Plan: replaced will follow BMP mag WNL (6) DVT prophylaxis Current Visit: Yes Status: Acute Assessment and Plan: heparin sc DVT Prophylaxis: Heparin subcutaneous - Time Spent with Patient Total time spent is greater than 50% in coordination of care (as documented) at patient's floor/unit and/or counseling patient: Plan of Care Discussed with: patient Internal Medicine: Result - Labs CBC & Chem 7: 04/01/18 02:53 04/01/18 02:53 Labs: Short CBC 04/01/18 Range/Units 02:53 WBC 18.9 H (4.3-11.1) K/mcL Hgb 11.8 (11.5-15.4) g/dL Hct 34.5 L (35.3-44.9) % Plt Count 202 (140-400) K/mcL Neutrophils # 13.9 H (1.6-8.9) K/mcL BMP 04/01/18 02:53 Sodium 132 L Potassium 3.0 L Chloride 112 H Carbon Dioxide 19 L BUN 4 L Creatinine 0.63 Glucose 126 H Calcium 8.8 - VTE Documentation of Mechanical Device: Intermittent pneumatic compression device Consult Discharge Plan - Plan Referrals: Asad Walker DO [Primary Care Provider] - (2) Sepsis Qualifiers: Sepsis type: sepsis due to unspecified organism Qualified Code(s): A41.9 - Sepsis, unspecified organism (3) Hepatitis C Qualifiers: Qualified Code(s): B19.20 - Unspecified viral hepatitis C without hepatic coma
[2018-04-01] MEDS ORDERED: *HR* OxyCODONE/APAP 5/325 TABLET PO PRN (09:50)
[2018-04-01 10:44] VITALS: BP 108/72
[2018-04-01] MEDS ORDERED: *HR* Heparin 5,000 UNIT/ML VIAL SQ SCH (14:00)
[2018-04-01] MEDS ORDERED: Aminoglycoside Consult 1 EACH MC ONE (14:15)
--- NOTE | 2018-04-02 18:55 | Discharge Summary ---
- NOTES TO OUTPATIENT PROVIDER Notes to Outpatient Provider: LEFT ama Date of Encounter: 04/02/18 Time of Encounter: 14:00 - Discharge Diagnosis (1) Pyelonephritis Priority: Primary Status: Acute (2) Sepsis Priority: Secondary Status: Acute Qualifiers: Sepsis type: sepsis due to unspecified organism Qualified Code(s): A41.9 - Sepsis, unspecified organism (3) Hepatitis C Priority: Secondary Status: Acute Qualifiers: Qualified Code(s): B19.20 - Unspecified viral hepatitis C without hepatic coma (4) Hypophosphatemia Priority: Secondary Status: Acute (5) Hypokalemia Priority: Secondary Status: Acute (6) DVT prophylaxis Priority: Secondary Status: Acute Hospital course: Ms. Hightower is a 22 year old female 22 year old female with history of recurrent UTIs, hep C, IV drug abuseand past hopsitalization for pyelonephritis presenting with comlaints of flank pain since 5 days before admission. As per patient she was recently treated for a UTI with Keflex for 14 days 2 months ago but her symptoms returned. Currently she denies any fever, chills, nausea, vomiting, diarrhea. She still has mild dysuria, as right-sided flank pain, that is crampy in nature and has made her difficult to sleep on her right side. She has received IV antibiotics without any adverse reactions. Patient wanted to sign AMA and go to home. Explained to the patient the importance of disease management in the hospital and risk of signing out AMA. pt understood complication of not being cooperative with treatment management that includes but not limited to even . Patient signed AMA. Witnessed by nurse. - Time Spent with Patient Total time spent providing and/or coordinating discharge services: - Discharge Medications Home Medications: Acetaminophen [Arthritis Pain Relief] 650 mg PO BID 03/31/18 [History] Buspirone HCl [Buspar] 10 mg PO BID PRN 03/31/18 [History] Citalopram [CeleXA] 20 mg PO DAILY 03/31/18 [History] Mavyret 3 tab PO DAILY 03/31/18 [History] Pantoprazole Sodium [Protonix] 40 mg PO BID 03/31/18 [History] Allergies/Adverse Reactions: 3 Allergy/AdvReac Type Severity Reaction Status Date / Time Amoxicillin Allergy Rash Verified 03/31/18 21:52 sulfamethoxazole Allergy Anaphylaxis Verified 03/31/18 21:52 [From Bactrim] trimethoprim [From Bactrim] Allergy Anaphylaxis Verified 03/31/18 21:52 Date of admission: 03/31/18 22:54 Primary care physician: Asad Walker DO - Constitutional Vitals: Temp Pulse Resp BP Pulse Ox 99.2 F 89 18 108/72 97 04/01/18 10:43 04/01/18 10:43 04/01/18 10:43 04/01/18 10:43 04/01/18 10:43 left AMA - Patient Status Disposition: Left Against Medical Advice Condition: Undetermined - Discharge Instructions Follow Up With: Asad Walker DO [Primary Care Provider] - - VTE Documentation of Mechanical Device: Intermittent pneumatic compression device
== END 2018-04-01 14:16 | disposition left against medical advice (07) | DRG 720 ==
LOC: 3ANU 17:56 → EMEROO 17:56 → SUATTDRO 22:54 → 3ANU 23:10
PROVIDERS: ADMIT Student in an Organized Health Care Education/Training Program; ATTEND Internal Medicine